=== PATIENT | female | born 1945 | race Caucasian/White ===

== ENCOUNTER → 2016-08-10 | Outpatient (CLI) | payer OTHER ==
--- NOTE | 2016-08-10 12:34 | DX ---
Chest, Two Views 1103 hours History: R 06.02, M 16.0, M 79.672, shortness breath, hypoxia. Comparison: None. Findings: Cardiac silhouette is mildly enlarged. Right lower lobe and lingula patchy opacities sugg esting pneumonia. No pleural effusion or pneumothorax. Impression: 1. Patchy right lower lobe and lingula pneumonia. 2. Recommend followup until clear. A Follow-Up Required test result notification was sent via the [employer] service, 12:32:11 PM, 08/10/2016 , [employer] Message ID [id number].
== END ==
LOC: FIMAGING 11:02
PROVIDERS: ATTEND Internal Medicine
DX: M16.0 Bilateral primary osteoarthritis of hip (principal)

== ENCOUNTER → 2016-08-19 | Outpatient (CLI) | payer OTHER ==
--- NOTE | 2016-08-19 13:00 | CT ---
CT Chest Without Contrast History: Shortness of breath, R06.02. Possible restrictive lung disease. Abnormal chest radiograph of August 10, 2016. Technique: Multidetector helical CT was performed of the chest without intravenous contrast, using do se reduction technology. Findings: Compare chest radiograph of August 10, 2016. Heart size on the chest radiograph is exaggera mandy by large mediastinal fat pads in this obese patient. Heart size is actually normal. Coronary calc ifications are present. No pericardial effusion. Healed fractures of right 9th, 10th, and 11th ribs are associated with mild foci of fibrosis, probabl y residua of old pulmonary contusions. Bronchiectasis of medial margin of right middle lobe is assoc iated with a small focus of chronic atelectasis. Mild scarring is noted at the periphery of the lingu la. No masses and no acute pulmonary consolidation are identified. Focal defect of posterolateral abdominal musculature overlying the right kidney is compatible with pr evious surgery of the right kidney. A stone in the left renal pelvis measures 1.7 cm transverse x 1.0 cm AP. A stone in an anterior calyx of the left kidney measures 5 mm maximum diameter. Hydronephrosi s appears mild. The left kidney is not completely imaged. Gallbladder is absent. Impression: 1. Large mediastinal fat pad; normal-sized heart. 2. Scattered areas of pulmonary fibrosis. 3. Bronchiectasis and atelectasis of medial margin of right middle lobe. 4. Healed right rib fractures. 5. Left renal stones include a stone of moderate size in the left renal pelvis.
== END ==
LOC: CIMAGING 11:28
PROVIDERS: ATTEND Internal Medicine
DX: E65 Localized adiposity (principal); J84.10 Pulmonary fibrosis, unspecified; J47.9 Bronchiectasis, uncomplicated; N20.0 Calculus of kidney
CPT/HCPCS: 71250-PO

== ENCOUNTER → 2016-11-30 | Outpatient (CLI) | payer OTHER | LOC: FCPNEURO 20:00 | PROVIDERS: ATTEND Psychiatry & Neurology Sleep Medicine | DX: G47.33 Obstructive sleep apnea (adult) (pediatric) (principal); G47.31 Primary central sleep apnea ==

== ENCOUNTER → 2017-01-15 | Outpatient (CLI) | payer OTHER | LOC: FCPNEURO 23:42 | PROVIDERS: ATTEND Psychiatry & Neurology Sleep Medicine | DX: G47.33 Obstructive sleep apnea (adult) (pediatric) (principal); G47.31 Primary central sleep apnea; G47.61 Periodic limb movement disorder ==

== ENCOUNTER → 2017-03-17 | Outpatient (CLI) | payer OTHER | LOC: FIMAGING 12:31 | PROVIDERS: ATTEND Internal Medicine | DX: Z12.31 Encounter for screening mammogram for malignant neoplasm of breast (principal) | CPT/HCPCS: G0202 ==

== ENCOUNTER → 2018-04-27 | Outpatient (CLI) | payer OTHER | LOC: FIMAGING 11:30 | PROVIDERS: ATTEND Internal Medicine | DX: Z12.31 Encounter for screening mammogram for malignant neoplasm of breast (principal) ==